=== PATIENT | male | born 1985 | race Caucasian/White ===

== ENCOUNTER 2018-07-10 13:27 | Emergency (ER) | payer OTHER ==
--- NOTE | 2018-07-10 14:11 | PDOC ---
History of Present Illness - General Chief Complaint: Pain Stated Complaint: LEFT GROIN PAIN Time Seen by Provider: 07/10/18 13:51 - History of Present Illness Initial Comments: Vasiliy Santos is a 32yo man with a PMH of autism, minimally verbal at baseline , who presents with his day counselor for left testicular or groin pain. History was provided by the counselor, and Vasiliy' father was contacted via phone to provide consent for exam and treatment. Per the counselor, Vasiliy went to his day program today and was noted to be crying and holding his groin. He was taken to urgent care and referred to the ED for possible torsion or hernia. His counselor is not aware of any additional symptoms recently. She believes that he has been eating normally and is not aware of any recent fevers, nausea/vomiting, diarrhea or constipation. She reports that his urine was "dark" earlier this morning but denies any blood. The only other medical history that the counselor knows of (or provided by the pt's father) is parotid swelling that is yet undiagnosed. Per Vasiliy' father, he was seen by ENT and scheduled for an MRI in the near future. He is otherwise healthy. Past History - Past Medical History Allergies/Adverse Reactions: Allergies Allergy/AdvReac Type Severity Reaction Status Date / Time No Known Allergies Allergy Verified 07/10/18 13:55 Home Medications: Ambulatory Orders Aripiprazole [Abilify] 5 mg PO BID 07/10/18 Cholecalciferol (Vitamin D3) [Vitamin D] 2,000 unit PO HS 07/10/18 Divalproex Sodium 1,000 mg PO HS 07/10/18 Divalproex Sodium 250 mg PO DAILY 07/10/18 Krill/Souris-3/Dha/Epa/Lipids [Souris-3 Krill Oil 500 mg Sfgl] 2 each PO DAILY Methylphenidate HCl [Methylphenidate ER] 18 mg PO DAILY 07/10/18 Naltrexone HCl [Revia -] 50 mg PO TID 07/10/18 Sulfamethoxazole/Trimethoprim [Bactrim Ds -] 1 tab PO BID #14 tablet 07/10/18 Review of Systems - Review of Systems Able to Perform ROS?: No Comments:: Counld not obtain. Patient minimally verbal. *Physical Exam - Physical Exam Comments: General: Comfortable, no acute distress HEENT: PERRL, EOMI, MMM Cards: RRR, no murmur appreciated Pulm: Comfortable on room air, clear to auscultation bilaterally Abd: Soft, nontender, nondistended : Normal external genitalia w/o erythema or swelling. Left testicle TTP. Pt indicates pain at the left groin or base of the scrotum; no visible abnormality. No discharge or lesions. Normal cremasteric reflex b/l. Ext: Atraumatic. No LE edema. ROM intact. Moves all extremities. Vasc: Extremities WWP. Skin: Normal color, no rashes or lesions Neuro: Awake, able to follow commands, CN grossly intact, mimics portions of questions asked, motor/sensory grossly intact and symmetric ED Treatment Course - LABORATORY CBC & Chemistry Diagram: 07/10/18 15:05 07/10/18 15:05 - RADIOLOGY Radiology Studies Ordered: Category Date Time Status SCROTUM AND CONTENTS US [US] Stat Ultrasound 07/10/18 13:52 Ordered Medical Decision Making - Medical Decision Making 07/10/18 14:15 Vasiliy Santos is a 32yo man with a PMH of autism and undiagnosed parotid swelling who presents with apparent left testicular pain since this morning. - DDx includes torsion, kidney stone, epididymitis, orchitis. Less likely hydrocele given pain. Could consider mumps as pt has parotid swelling, but per father he has had all his childhood immunizations and the parotid swelling is not new. - Scrotal US ordered for evaluation of torsion - UA and UCx ordered for possible stone - May need labs, but will assess ultrasound and UA prior to ordering 07/10/18 15:04 - Ultrasound completed, reviewed in ED. No pathology noted, radiology read pending - UA w/ protein, ketones, bilirubin. Negative for blood, nitrites, leuk esterase but 5-10 RBC and 2-5 WBC noted - Given RBCs will order CT renal stone protocol to r/o stone as a cause of pain - CBC, chemistry to check for abnormalities - Appears mildly dehydrated based on UA w/ ketones. 1L NS bolus ordered 07/10/18 16:47 - No stones on CT, but notes large amount of stool that is compressing the bladder - Pain may be due to constipation or possibly UTI - Mag citrate, miralax, fleets enema ordered - Will attempt rectal exam if tolerated by pt 07/10/18 17:55 - Rectal exam without abnormalities. No firm stool palpated. - Large bowel movement following meds and enema - Discussed using mild laxatives daily for constipation. Counselor states understanding. Reports that pt has MoM on his med list. Discussed follow up with GI. Plan to discharge home. Seen and discussed with Dr Finch. Crystal Hurd PGY1 *DC/Admit/Observation/Transfer Diagnosis at time of Disposition: Constipation, UTI (urinary tract infection) - Discharge Dispostion Disposition: HOME Condition at time of disposition: Good Decision to Admit order: No - Prescriptions Prescriptions: Sulfamethoxazole/Trimethoprim [Bactrim Ds -] 1 tab PO BID #14 tablet - Referrals Referrals: Jeff Rhodes MD [Staff Physician] - Rosa Hernandez [Primary Care Provider] - - Patient Instructions Printed Discharge Instructions: Urinary Tract Infection, Constipation Additional Instructions: You need to encourage lots of liquids and vegetables. you should start miralax one packet daily to prevent constipation. Your previously prescribed milk of magnesia would also be OK. You should follow up with a ham pumper. you can see Dr Rhodes (GI doctor), see referral information for phone number. return for worsening pain, vomiting or any concerns. your ultrasound of the testicles is normal. your urine shows a urinary tract infection. you should take bactrim one tablet twice daily. return for fever, vomiting or any concerns. follow up with primary doctor within one week. - Post Discharge Activity
[2018-07-10 14:21] LABS: PH,URINE 6.5 (4.5-8); URINE APPEARANCE Slightly; URINE BILIRUBIN 2+ (NEGATIVE); URINE COLOR Yellow; URINE GLUCOSE (UA) Negative (NEGATIVE); URINE KETONE 2+ (NEGATIVE); URINE LEUK ESTERASE Negative (NEGATIVE); URINE NITRITE Negative (NEGATIVE); URINE PROTEIN 1+ (NEGATIVE)
[2018-07-10 14:27] VITALS: BP 148/85; PULSE 109; TEMP 99.1; BMI 29.1
[2018-07-10 14:31] LABS: AMORP URATES 1+ /hpf (NONE SEEN); EPI CELLS 1+ /HPF; URINE BACTERIA 1+ /hpf (NEGATIVE)
[2018-07-10] MEDS ORDERED: SODIUM CHLORIDE 0.9% 500 ML INFUS.BAG IV ONE (15:01)
--- NOTE | 2018-07-10 15:07 | PDOC ---
Attending Attestation - Resident Resident Name: Crystal Hurd - ED Attending Attestation I have performed the following: I have examined & evaluated the patient, The case was reviewed & discussed with the resident, I agree w/resident's findings & plan, Exceptions are as noted - HPI HPI: 07/10/18 15:03 32 yo male with h/o autism here with c/o left groin pain. pt is noverbal but here with concerns by aid for left inguinal pain. pt has been pointing to area and indicating it hurt. no nv no f/c no ho recent uti, no known prior abd surgery. pt was recently diagnosis with parotitis, additional history per pt father via phone has been fully immunized. - Physicial Exam PE: 07/10/18 15:05 awake alert lungs clear bilaterally heart rrr no mrg abd soft mild llq ttp, no palp groin mass or palp hernia. left testical mild epididymal tenderness. post cremasteric reflex bilaterally. no palp mass. no erythema. no palp scrotal hernia. nuero awake alert follows commands. - Medical Decision Making 07/10/18 15:06 differential orchitis, epididymitis, uti, pyelo renal colic, testicular torsion. plan scrotal us, ct a/p without contrast.
[2018-07-10 15:51] LABS: MCH 27.8 pg (25.7-33.7); MCHC 32.1 g/dl (32.0-35.9); MEAN CELL VOLUME 86.6 fl (80-96); MEAN PLT VOLUME 10.8 fl (7.5-11.1); PLATELET COUNT 212 K/MM3 (134-434); RBC 5.77 M/mm3 (4.00-5.60); RDW 12.9 % (11.9-15.9); WHITE BLOOD COUNT 12.1 K/mm3 (4.0-10.8)
[2018-07-10 15:57] LABS: ALBUMIN 4.1 g/dl (3.5-5.0); ALK PHOS 69 U/L (32-92); ANION GAP 5 MMOL/L (8-16); BILIRUBIN,TOTAL 0.9 mg/dl (0.2-1.0); BLOOD UREA NITROGEN 16 mg/dl (7-18); CALCIUM 9.4 mg/dl (8.4-10.2); CHLORIDE 104 mmol/L (98-107); CO2 26 mmol/L (22-28); CREATININE 0.7 mg/dl (0.6-1.3); GLUCOSE,RANDOM 92 mg/dl (74-106); MAGNESIUM 1.9 mg/dL (1.8-2.4); POTASSIUM 4.3 mmol/L (3.5-5.1); SGOT/AST 22 U/L (10-42); SGPT/ALT 17 U/L (10-40); SODIUM 135 mmol/L (136-145); TOT PROT 7.4 g/dl (6.4-8.3)
[2018-07-10] MEDS ORDERED: SODIUM PHOSPHATE/NA BIPHOS 133 ML ENEMA PR ONE (16:41)
[2018-07-10] MEDS ORDERED: MAGNESIUM CITRATE 300 ML BOTTLE PO ONE (16:42)
[2018-07-10] MEDS ORDERED: POLYETHYLENE GLYCOL 3350 119 GM BTL PO ONE (16:42)
[2018-07-10] MEDS ORDERED: SULFAMETHOXAZOLE/TRIMETHOPRIM 800MG/160MG D.S. TABLET PO ONE (17:08)
[2018-07-10] MEDS ORDERED: MAGNESIUM CITRATE 300 ML BOTTLE ONE (17:11)
[2018-07-10] MEDS ORDERED: SULFAMETHOXAZOLE/TRIMETHOPRIM 800MG/160MG D.S. TABLET ONE (17:11)
[2018-07-10 17:52] LABS: PLATELET ESTIMATE ADEQUATE
== END 2018-07-10 18:16 | disposition home or self-care (01) ==
LOC: FER 13:27
PROC: 3E0337Z Introduction of Electrolytic and Water Balance Substance into Peripheral Vein, Percutaneous Approach (ICD-10-PCS; principal; 2018-07-10)
DX: N39.0 Urinary tract infection, site not specified (principal); K59.00 Constipation, unspecified; F84.0 Autistic disorder
CPT/HCPCS: 36415; 74176; 76870-TC; 80053; 81003; 81015; 83735; 84100; 85025; 87086; 99283-25